=== PATIENT | female | born 1980 | race Caucasian/White ===

== ENCOUNTER 2018-11-22 16:05 | Outpatient (CLI) | payer MEDICAID ==
--- NOTE | 2018-11-22 16:46 | MMO ---
Bilateral MAMMO Bilat Screen DDI. CLINICAL HISTORY: Patient is 38 years old and is seen for screening. The patient has the following family history of breast cancer: cousin female, at age 40, malignant (generic), BRAIN. The patient has no personal history of cancer. VIEWS: The views performed were: bilateral craniocaudal and bilateral mediolateral oblique. This study has been interpreted with the assistance of computer-aided detection. MAMMOGRAM FINDINGS: The breasts are heterogeneously dense, which could obscure a lesion on mammography. There is a high density, round mass measuring 9 millimeters with circumscribed margins seen in the outer region of the left breast. In the right breast, there are no suspicious masses, calcifications or areas of architectural distortion. IMPRESSION: MASS IN THE LEFT BREAST REQUIRES ADDITIONAL EVALUATION. AN ULTRASOUND EXAM IS RECOMMENDED. ACR BI-RADS Category 0 - Incomplete: Need additional imaging evaluation. [facility] will notify the patient of the need for additional imaging services. MAMMOGRAPHY NOTE: 1. A negative mammogram report should not delay a biopsy if a dominant of clinically suspicious mass is present. 2. Approximately 10% to 15% of breast cancers are not detected by mammography. 3. Adenosis and dense breasts may obscure an underlying neoplasm. Reported by: CHAPITO TYLER MD Electonically Signed: [id number]
== END 2018-11-22 16:06 | disposition home or self-care (01) ==
LOC: BICMAMMO 16:05
PROVIDERS: ATTEND Family Medicine
DX: Z12.31 Encounter for screening mammogram for malignant neoplasm of breast (principal); Z80.3 Family history of malignant neoplasm of breast; N63.20 Unspecified lump in the left breast, unspecified quadrant
CPT/HCPCS: 77067

== ENCOUNTER 2018-11-27 15:22 | Outpatient (CLI) | payer MEDICAID ==
--- NOTE | 2018-11-27 16:15 | ULT ---
LEFT BREAST DIAGNOSTIC ULTRASOUND: Indication: Palpable mass in the left breast. Comparison: Screening mammogram dated 11-22-18. FINDINGS: There is an mixed echogenicity 0.8 x 0.8 x 0.7 cm nonvascular mass that arises from the skin with ass ociated skin appendage consistent with a sebaceous cyst. IMPRESSION: BIRADS 2 left breast. This is a prominent mass on the screening examination, therefore, would recomme nd surgical consultation and surgical removal of this sebaceous cyst. POS: OFF
== END 2018-11-27 15:23 | disposition home or self-care (01) ==
LOC: BICULT 15:22
PROVIDERS: ATTEND Family Medicine
DX: N63.20 Unspecified lump in the left breast, unspecified quadrant (principal); N60.82 Other benign mammary dysplasias of left breast

== ENCOUNTER 2019-12-03 13:33 | Outpatient (CLI) | payer MEDICAID ==
--- NOTE | 2019-12-03 14:17 | MMO ---
Bilateral MAMMO Bilat Screen DDI. CLINICAL HISTORY: Patient is 39 years old and is seen for screening. The patient has the following family history of breast cancer: cousin female, at age 40, malignant (generic), BRAIN. The patient has no personal history of cancer. VIEWS: The views performed were: bilateral craniocaudal and bilateral mediolateral oblique. FILMS COMPARED: The present examination has been compared to prior imaging studies performed at [facility] on 11/22/2018 and 11/27/2018. This study has been interpreted with the assistance of computer-aided detection. MAMMOGRAM FINDINGS: The breasts are heterogeneously dense, which could obscure a lesion on mammography. There are no suspicious masses, suspicious calcifications, or new areas of architectural distortion. IMPRESSION: THERE IS NO MAMMOGRAPHIC EVIDENCE OF MALIGNANCY. A ROUTINE FOLLOW-UP MAMMOGRAM IN 1 YEAR IS RECOMMENDED. ACR BI-RADS Category 1 - Negative MAMMOGRAPHY NOTE: 1. A negative mammogram report should not delay a biopsy if a dominant of clinically suspicious mass is present. 2. Approximately 10% to 15% of breast cancers are not detected by mammography. 3. Adenosis and dense breasts may obscure an underlying neoplasm. Reported by: CAS MAN MD Electonically Signed: [id number]
== END 2019-12-03 13:34 | disposition home or self-care (01) ==
LOC: BICMAMMO 13:33
PROVIDERS: ATTEND Family Medicine
DX: Z12.31 Encounter for screening mammogram for malignant neoplasm of breast (principal); Z80.3 Family history of malignant neoplasm of breast
CPT/HCPCS: 77067